=== PATIENT | male | born 1955 | race Asian ===

== ENCOUNTER 2018-06-07 06:19 | Day surgery (SDC) | payer BC ==
[2018-06-07] MEDS ORDERED: LIDOCAINE 2% (SDV) 5 ML INJ (07:35)
[2018-06-07] MEDS ORDERED: PROPOFOL 40 ML (07:35)
== END 2018-06-07 09:45 | disposition home or self-care (01) ==
LOC: GIL 06:19
DX: Z12.11 Encounter for screening for malignant neoplasm of colon (principal); K64.8 Other hemorrhoids; I10 Essential (primary) hypertension; E78.5 Hyperlipidemia, unspecified; Z87.891 Personal history of nicotine dependence
CPT/HCPCS: 45378